=== PATIENT | male | born 1970 | race American Indian/Alaskan Native ===

== ENCOUNTER 2017-02-02 19:54 | Emergency (ER) | payer SELFPAY ==
[2017-02-02] MEDS ORDERED: CATAPRES PO ONE (20:15)
[2017-02-03] MEDS ORDERED: NORMODYNE IV ONE (02:50)
[2017-02-03 03:40] LABS: Basophils % (Auto) 1.3 % (0.0-1.8); Eosinophils % (Auto) 2.5 % (0.0-4.3); Hemoglobin 13.2 gm/dl (11.8-15.2); Mean Corpuscular HGB Conc 34 % (32-34); Mean Corpuscular Hemoglobin 33 pg (28-32); Mean Corpuscular Volume 96 fl (84-94); Platelet Count 215 K/mm3 (140-440); Red Blood Count 4.04 M/mm3 (3.65-5.03); Red Cell Distribution Width 13.8 % (13.2-15.2); White Blood Count 6.3 K/mm3 (4.5-11.0)
[2017-02-03] MEDS ORDERED: LASIX IV ONE (03:45)
[2017-02-03] MEDS ORDERED: APRESOLINE IV ONE (03:45)
[2017-02-03 03:52] LABS: Anion Gap 20 mmol/L; BUN/Creatinine Ratio 9; Blood Urea Nitrogen 8 mg/dL (9-20); Calcium 8.1 mg/dL (8.4-10.2); Carbon Dioxide 19 mmol/L (22-30); Chloride 94.6 mmol/L (98-107); Glucose 88 mg/dL (75-100); Potassium 4.1 mmol/L (3.6-5.0); Sodium 129 mmol/L (137-145)
[2017-02-03] MEDS ORDERED: SUBLIMAZE IV ONE (04:00)
--- NOTE | 2017-02-03 04:21 | XRay Report ---
FINAL REPORT EXAM: XR CHEST 1V AP HISTORY: chest pain TECHNIQUE: AP portable view(s) of the chest obtained. PRIORS: None. FINDINGS: No mediastinal shift. Cardiomegaly. Tortuous aorta. Lower lung predominant interstitial prominence. Ill-defined bibasilar opacities. No definite effusion. No pneumothorax or acute skeletal finding. IMPRESSION: Mild sequela of heart failure are suggested. Ill-defined lower lung opacities may represent atelectasis, edema, or superimposed infection in the proper clinical setting. Consider PA and lateral chest radiographic follow-up.
[2017-02-03] MEDS ORDERED: NITROSTAT SL ONE (04:51)
[2017-02-03] MEDS ORDERED: NITROSTAT SL PRN (04:52)
--- NOTE | 2017-02-03 05:56 | Emergency Department Report ---
HPI - General Chief Complaint: Skin/Abscess/Foreign Body Time Seen by Provider: 02/03/17 03:30 - HPI HPI: The patient's 46-year-old male with a history of untreated congestive heart failure, poorly controlled hypertension, who presents for evaluation of left leg pain and bleeding. The patient states that for the past one day he has experienced constant mild bleeding from a wound to the distal medial aspect of the left lower leg. He states that his experienced mild pain surrounding the wound on the left lower leg, 2/10, stinging in quality, exacerbated with weightbearing, associated with diffuse swelling of the bilateral lower extremities. He shares that he sustained a minor blunt impact to the area of concern earlier today. He denies fever, dyspnea, chest pain, hemoptysis, hematemesis, blood in the stool, hematuria, easy bruising or bleeding, blood thinner use. ED Past Medical Hx - Past Medical History Hx Hypertension: Yes Hx Congestive Heart Failure: Yes (diagnosed in ED never saw a mechanic assistant) Additional medical history: Noncompliance - Surgical History Past Surgical History?: No - Social History Smoking Status: Current Every Day Smoker Substance Use Type: Alcohol, Marijuana - Medications Home Medications: Home Medications Medication Instructions Recorded Confirmed Last Taken Type Furosemide [Lasix] 20 mg PO QDAY #30 tablet 02/03/17 Unknown Rx Hydrochlorothiazide [HCTZ] 25 mg PO QDAY #30 tablet 02/03/17 Unknown Rx ED Review of Systems ROS: Stated complaint: ABSCESS LEFT LEG Other details as noted in HPI Constitutional: denies: fever ENT: denies: throat or neck pain Respiratory: denies: cough, shortness of breath Cardiovascular: denies: chest pain Endocrine: denies unexplained weight loss or gain Gastrointestinal: denies: abdominal pain, nausea Genitourinary: denies: dysuria Musculoskeletal: reports leg pain and leg swelling Skin: denies: rash Neurological: denies: headache Hematological/Lymphatic: denies: easy bleeding or easy bruising Psych: denies sadness or hopelessness Physical Exam - Physical Exam Vital Signs: Vital Signs 02/02/17 02/02/17 02/03/17 19:59 21:00 02:09 Temperature 98.2 F Pulse Rate 108 H 108 H Respiratory 18 Rate Blood Pressure 202/139 202/139 193/143 Blood Pressure [Left] O2 Sat by Pulse 99 Oximetry 02/03/17 02/03/17 02/03/17 02:16 02:26 02:28 Temperature 97.4 F L Pulse Rate 102 H Respiratory 20 20 Rate Blood Pressure 193/143 Blood Pressure 193/143 [Left] O2 Sat by Pulse 96 100 95 Oximetry 02/03/17 02/03/17 02/03/17 02:30 02:46 03:00 Temperature Pulse Rate 95 H Respiratory 20 Rate Blood Pressure 193/143 206/137 206/137 Blood Pressure 153/115 [Left] O2 Sat by Pulse 94 97 97 Oximetry 02/03/17 02/03/17 02/03/17 03:29 04:00 04:01 Temperature Pulse Rate 101 H 103 H 92 H Respiratory 20 Rate Blood Pressure 207/115 171/121 Blood Pressure 163/111 [Left] O2 Sat by Pulse 96 Oximetry 02/03/17 02/03/17 02/03/17 04:53 04:54 04:58 Temperature Pulse Rate 100 H 95 H Respiratory 20 20 Rate Blood Pressure 163/115 Blood Pressure 146/94 [Left] O2 Sat by Pulse 97 Oximetry Physical Exam: General: well-nourished, well-developed, no acute distress Head: Normocephalic, atraumatic Eyes: normal sclera ENT: Mucous membranes are pink and moist Neck: trachea midline, neck supple, No neck stiffness, no cervical adenopathy Respiratory: Breath sounds equal bilaterally, no wheezing, rales, or rhonchi Cardio: S1 and S2 present, no murmurs, rubs, gallops, capillary refill is brisk Abdomen: Normoactive bowel sounds, soft abdomen, no rigidity, no guarding or rebound tenderness Chest WALL/Back: No tenderness to palpation of the chest wall, no CVA tenderness with percussion Musc: 1+ pitting edema of bilateral legs present, 1 mm stasis ulcers presents to the medial aspect of the distal left lower leg, mild active bleeding present Skin: No rash Neuro: no facial drooping, normal speech Psych: Normal affect ED Course Vital Signs 02/02/17 02/02/17 02/03/17 19:59 21:00 02:09 Temperature 98.2 F Pulse Rate 108 H 108 H Respiratory 18 Rate Blood Pressure 202/139 202/139 193/143 Blood Pressure [Left] O2 Sat by Pulse 99 Oximetry 02/03/17 02/03/17 02/03/17 02:16 02:26 02:28 Temperature 97.4 F L Pulse Rate 102 H Respiratory 20 20 Rate Blood Pressure 193/143 Blood Pressure 193/143 [Left] O2 Sat by Pulse 96 100 95 Oximetry 02/03/17 02/03/17 02/03/17 02:30 02:46 03:00 Temperature Pulse Rate 95 H Respiratory 20 Rate Blood Pressure 193/143 206/137 206/137 Blood Pressure 153/115 [Left] O2 Sat by Pulse 94 97 97 Oximetry 02/03/17 02/03/17 02/03/17 03:29 04:00 04:01 Temperature Pulse Rate 101 H 103 H 92 H Respiratory 20 Rate Blood Pressure 207/115 171/121 Blood Pressure 163/111 [Left] O2 Sat by Pulse 96 Oximetry 02/03/17 02/03/17 02/03/17 04:53 04:54 04:58 Temperature Pulse Rate 100 H 95 H Respiratory 20 20 Rate Blood Pressure 163/115 Blood Pressure 146/94 [Left] O2 Sat by Pulse 97 Oximetry ED Medical Decision Making - Lab Data Result diagrams: 02/03/17 03:20 02/03/17 03:20 - Medical Decision Making The patient was seen and examined by myself. The patient is placed on a teletypesetter monitor and continuous pulse ox. On initial evaluation, the patient was found to be in no distress. Evaluation orders were placed. Pressure dressing is applied to the patient's wound. The patient given multiple IV antihypertensives and IV Lasix for treatment of CHF. X-ray exhibits cardiomegaly and bibasilar pulmonary vascular congestion consistent with known congestive heart failure. Lab results revealed elevated BNP of 3000, also consistent with congestive heart failure. On reevaluation the patient's found to have resolution of bleeding and decrease in blood pressure below level concerning for hypertensive emergency, BP now 140s/90s. The patient is stable for discharge with outpatient follow-up. The patient is given follow-up and return instructions. The patient expressed understanding and agreed with the plan. The patient is discharged in stable condition. Critical care attestation.: If time is entered above; I have spent that time in minutes in the direct care of this critically ill patient, excluding procedure time. ED Disposition Clinical Impression: Systolic CHF, acute on chronic, Bleeding from wound, Leg edema, right, Leg edema, left, Hypertensive urgency Disposition: DC-01 TO HOME OR SELFCARE Is pt being admited?: No Does the pt Need Aspirin: No Condition: Stable Instructions: Heart Failure (ED), Leg Edema (ED), Hypertension (ED), Acute Wound Care (ED) Prescriptions: Furosemide [Lasix] 20 mg PO QDAY #30 tablet Hydrochlorothiazide [HCTZ] 25 mg PO QDAY #30 tablet Referrals: LYNDON AVILA MD [Staff Physician] - 3-5 Days [facility] [Provider Group] - 3-5 Days Time of Disposition: 05:53
[2017-02-03 06:20] VITALS: BP 164/93
[2017-02-03 06:20] LABS: INR 1.05 (0.87-1.13)
[2017-02-03 06:21] LABS: Partial Thromboplastin Time 28.6 Sec. (24.2-36.6)
== END 2017-02-03 06:18 | disposition home or self-care (01) ==
LOC: ED 19:54
DX: I50.23 Acute on chronic systolic (congestive) heart failure (principal); I16.0 Hypertensive urgency; R60.0 Localized edema; R58 Hemorrhage, not elsewhere classified; L97.828 Non-pressure chronic ulcer of other part of left lower leg with other specified severity; F12.10 Cannabis abuse, uncomplicated; F17.200 Nicotine dependence, unspecified, uncomplicated
CPT/HCPCS: 36415; 71010; 80048; 83880; 85025; 85610; 85730; 96374; 96375; 99284; J0360; J1940

== ENCOUNTER 2018-06-03 11:25 | Outpatient (CLI) | payer OTHER ==
--- NOTE | 2018-06-03 12:09 | XRay Report ---
CHEST XRAY, 2 VIEWS: History: Chronic systolic heart failure. Findings: There is mild cardiomegaly. Pulmonary vessels are within normal limits. The lungs are clear and fully expanded. No infiltrate, pleural effusion or pneumothorax. Minor scarring or segmental atelectasis is noted in the lingula. Normal thoracic cage. IMPRESSION: Cardiomegaly.
== END 2018-06-03 11:26 | disposition home or self-care (01) ==
LOC: XRAY 11:25
PROVIDERS: ATTEND Internal Medicine
DX: Z02.71 Encounter for disability determination (principal); I11.0 Hypertensive heart disease with heart failure; I50.22 Chronic systolic (congestive) heart failure
CPT/HCPCS: 71046